=== PATIENT | female | born 1960 | race Caucasian/White ===

== ENCOUNTER 2017-01-24 21:40 | Emergency (ER) | payer MEDICAID ==
[2017-01-25 00:41] LABS: BASOPHIL % 0.3 % (0-2); PLATELET COUNT 247 x10^3mcL (130-400); RED CELL DISTRIBUTION WIDTH 14.5 % (11.5-14.5)
[2017-01-25 01:10] LABS: CARBON DIOXIDE 25.8 mmol/L (21-32); CHLORIDE SERUM 104 mmol/L (98-107); CREATININE SERUM 0.8 mg/dL (0.6-1.0); GFR1 > 60 mL/min; GLUCOSE SERUM 120 mg/dL (74-106); POTASSIUM SERUM 3.4 mmol/L (3.5-5.1); SODIUM SERUM 140 mmol/L (136-145)
[2017-01-25 01:17] LABS: ALKALINE PHOSPHATASE 159 U/L (46-116); ALT/SGPT 48 U/L (14-59); AST/SGOT 28 U/L (15-37); BILIRUBIN TOTAL 0.3 mg/dL (0.20-1.00); TOTAL PROTEIN, SERUM 8.3 g/dL (6.4-8.2)
[2017-01-25 01:23] LABS: CK-MB 0.9 ng/mL (0-3.6)
[2017-01-25 02:10] VITALS: BP 132/73
== END 2017-01-25 02:10 | disposition home or self-care (01) ==
LOC: ED 21:40
PROVIDERS: Emergency Medicine
DX: R07.89 Other chest pain (principal); R05 Cough
CPT/HCPCS: 36415; 83880; J1885; Q0092

== ENCOUNTER 2017-09-27 15:43 | Emergency (ER) | payer MEDICAID ==
[~2017-09-27] VITALS: Ht 152.4 cm; Wt 68.9 kg
[2017-09-27 15:54] VITALS: BP 140/80; Ht 152.4 cm; Wt 68.9 kg
== END 2017-09-27 17:40 | disposition home or self-care (01) ==
LOC: ED 15:43
DX: M54.2 Cervicalgia (principal); M54.6 Pain in thoracic spine; E78.00 Pure hypercholesterolemia, unspecified

== ENCOUNTER 2018-06-18 18:13 | Emergency (ER) | payer MEDICAID ==
[~2018-06-18] VITALS: Ht 152.4 cm; Wt 68.1 kg
[2018-06-18 18:25] VITALS: Ht 152.4 cm; Wt 68.1 kg
[2018-06-18 21:12] LABS: BASOPHIL % 0.3 % (0-2); PLATELET COUNT 291 x10^3mcL (130-400); RED CELL DISTRIBUTION WIDTH 13.7 % (11.5-14.5)
[2018-06-18 21:36] LABS: CARBON DIOXIDE 23.9 mmol/L (21-32); CHLORIDE SERUM 103 mmol/L (98-107); CREATININE SERUM 0.7 mg/dL (0.6-1.0); GFR1 > 60 mL/min; GLUCOSE SERUM 131 mg/dL (74-106); POTASSIUM SERUM 3.6 mmol/L (3.5-5.1); SODIUM SERUM 140 mmol/L (136-145)
[2018-06-18 21:39] LABS: ALBUMIN 3.9 g/dL (3.4-5.0); ALKALINE PHOSPHATASE 133 U/L (46-116); ALT/SGPT 32 U/L (14-59); BILIRUBIN TOTAL 0.27 mg/dL (0.20-1.00); TOTAL PROTEIN, SERUM 8.1 g/dL (6.4-8.2)
[2018-06-18 21:50] LABS: AST/SGOT 25 U/L (15-37)
[2018-06-18 22:34] VITALS: BP 149/93
== END 2018-06-18 22:38 | disposition home or self-care (01) ==
LOC: ED 18:13
PROVIDERS: Emergency Medicine
DX: R07.89 Other chest pain (principal); R05 Cough; I10 Essential (primary) hypertension; Z98.890 Other specified postprocedural states
CPT/HCPCS: 36415; 83880; J1885

== ENCOUNTER 2018-07-08 02:24 | Emergency (ER) | payer MEDICAID ==
[~2018-07-08] VITALS: Ht 152.4 cm; Wt 68.7 kg
[2018-07-08 02:47] VITALS: Ht 152.4 cm; Wt 68.7 kg
[2018-07-08 05:20] VITALS: BP 151/93
== END 2018-07-08 05:20 | disposition home or self-care (01) ==
LOC: ED 02:24
DX: J20.9 Acute bronchitis, unspecified (principal); I10 Essential (primary) hypertension; E78.00 Pure hypercholesterolemia, unspecified
CPT/HCPCS: J1885; Q0092